=== PATIENT | female | born 1955 | race Two or more races ===

== ENCOUNTER 2021-08-07 11:39 | Outpatient (CLI) | payer OTHER | END 2021-08-07 11:48 | disposition home or self-care (01) | LOC: LAB 11:39 | PROVIDERS: ATTEND Obstetrics & Gynecology | DX: N91.1 Secondary amenorrhea (principal); R05.8 Other specified cough ==

== ENCOUNTER 2021-08-07 13:43 | Outpatient (CLI) | payer OTHER | END 2021-08-07 13:56 | disposition home or self-care (01) | LOC: MAMO-SONO 13:43 | PROVIDERS: ATTEND Obstetrics & Gynecology | DX: Z12.31 Encounter for screening mammogram for malignant neoplasm of breast (principal); Z87.898 Personal history of other specified conditions; N60.11 Diffuse cystic mastopathy of right breast ==

== ENCOUNTER 2021-09-12 10:37 | Inpatient (IN) | payer OTHER ==
[~2021-09-12] VITALS: Ht 165.1 cm; Wt 117.5 kg
[2021-09-15] MEDS ORDERED: HYDROCH PO (15:28)
[2021-09-18] MEDS ORDERED: AMOX-CLAV 875-1 EAC1 (08:06)
[2021-09-18] MEDS ORDERED: IBUPROFEN200 MG (08:07)
[2021-09-18] MEDS ORDERED: CVS CALCIUM (08:07)
[2021-09-18] MEDS ORDERED: ALLERGY EYE DRO15 ML (08:08)
[2021-09-20] MEDS ORDERED: IBUPROFEN400 MG PO (11:28)
== END 2021-09-20 13:02 | disposition home or self-care (01) | DRG 743 ==
LOC: O/R 09-17 06:40 → OB/GYN 09-17 06:40 → SURH 09-17 07:00 → OB/GYN 09-17 13:44
PROVIDERS: ADMIT Obstetrics & Gynecology; ATTEND Obstetrics & Gynecology
PROC: 0JQC0ZZ Repair Pelvic Region Subcutaneous Tissue and Fascia, Open Approach (ICD-10-PCS; 2021-09-17)
PROC: 0UT97ZZ Resection of Uterus, Via Natural or Artificial Opening (ICD-10-PCS; principal; 2021-09-17 07:00)
DX: D25.2 Subserosal leiomyoma of uterus (principal); Z20.822 Contact with and (suspected) exposure to COVID-19; N72 Inflammatory disease of cervix uteri; N81.3 Complete uterovaginal prolapse

== ENCOUNTER 2025-05-03 13:39 | Emergency (ER) | payer OTHER ==
[~2025-05-03] VITALS: Ht 165.1 cm; Wt 113.4 kg
[~2025-05-03 13:39] MED LIST: ALLERGY EYE DRO15 ML; AMOX-CLAV 875-1 EAC1; CVS CALCIUM; HYDROCH PO; IBUPROFEN200 MG; IBUPROFEN400 MG PO
[2025-05-03] MEDS ORDERED: ELIQUIS5 MG (13:53)
[2025-05-03] MEDS ORDERED: PEPCID AC20 MG (13:53)
[2025-05-03] MEDS ORDERED: NIFEDIPINE20 MG (13:54)
[2025-05-03] MEDS ORDERED: ATORVASTATIN CA40 MG (13:54)
[2025-05-03] MEDS ORDERED: HYDROCHLOROTH12.5 MG (13:54)
[2025-05-03] MEDS ORDERED: hydrALAZINE HCL 20 MG VIAL ONE (16:06)
[2025-05-03] MEDS ORDERED: hydrALAZINE HCL 20 MG VIAL IV ONE (16:15)
[2025-05-03] MEDS ORDERED: SODIUM CHLORIDE 0.45 % 1,000 ML IV ONE (16:15)
[2025-05-03] MEDS ORDERED: NITROGLYCERIN 0.4 MG TAB.SUBL SL ONE (16:30)
[2025-05-03 17:30] LABS: BASO % 0.8 % (0.1-1.2); EOS # 0.19 (0.04-0.54); EOS % 3.6 % (0.7-7.0); LYMPH # 1.77 (1.18-3.74); LYMPH % 33.4 % (19.3-53.1); MEAN PLATELET VOLUME 9.50 fl (9.4-12.4); MONO # 0.81 (0.24-0.82); NEUT # 2.47 (1.56-6.13); NEUT % 46.5 % (34.0-71.1); RED CELL DISTRIBUTION WIDTH 14.1 % (11.6-14.4)
[2025-05-03 17:31] LABS: MONO % 15.3 % (4.7-12.5)
[2025-05-03 17:57] LABS: INR 1.02
[2025-05-03 18:02] LABS: D DIMER < 0.19 MG/L
[2025-05-03 18:03] LABS: ALT/SGPT 39.0 U/L (12-78); AST/SGOT 21.0 U/L (15-37); BILIRUBIN TOTAL 0.8 mg/dL (0.3-1.2); BUN CREA RATIO 22.0 (7.0-25.0); CREATININE SERUM 0.82 mg/dL (0.55-1.02); GFR 69.12; GLOBULINA 3.2 G/DL (2.4-3.5); GLUCOSE FASTING 78.0 mg/dL (65-100); OSMOLALITY SERUM 282.0 MOSM/KG (275-295); PHOSPHOKINASE CREATININE 79.0 U/L (26-192)
[2025-05-03 20:09] LABS: URINE APPEARANCE Clear; URINE BILIRRUBIN Negative (NEGATIVE); URINE BLOOD Negative; URINE COLOR Yellow; URINE GLUCOSE Negative (NEGATIVE); URINE KETONE Negative (NEGATIVE); URINE LEUKOCYTE Trace; URINE NITRATE Negative; URINE PROTEIN Negative (NEGATIVE); URINE UROBILINOGEN 0.2 E.U./dl
[2025-05-03 20:13] LABS: URINE BACTERIA 22.7 uL (0.0-1933); URINE EPITHELIAL CELLS 4.4 uL (0.0-38.8); URINE RBC 5.5 uL (0.0-20.8); URINE WBC 8.7 uL (0.0-23.2)
[2025-05-03 20:14] LABS: URINE CAST 0.14 uL (0.0-1.40)
[2025-05-03] MEDS ORDERED: APIXABAN 5 MG TABLET PO ONE (21:30)
== END 2025-05-04 12:16 | disposition home or self-care (01) ==
LOC: ER 13:40
DX: I82.432 Acute embolism and thrombosis of left popliteal vein (principal); R07.9 Chest pain, unspecified; I10 Essential (primary) hypertension; Z86.711 Personal history of pulmonary embolism; E78.49 Other hyperlipidemia
CPT/HCPCS: 70450; 71250; 72125; 82803; 93005; 93970; 96365; 99284; J3490